=== PATIENT | male | born 1965 | race Caucasian/White ===

== ENCOUNTER 2018-06-15 11:45 | Inpatient (IN) | payer MEDICAID ==
[~2018-06-15] VITALS: Ht 188 cm; Wt 92.1 kg
[2018-06-15] MEDS ORDERED: MULTIVITAMINS,THERAGRAN 1 UDTAB TABLET PO STA (12:16)
[2018-06-15] MEDS ORDERED: FOLIC ACID 1 MG TABLET PO ONE (12:30)
[2018-06-15] MEDS ORDERED: CHLORDIAZEPOXIDE HCL 25 MG CAPSULE PO ONE (12:30)
[2018-06-15] MEDS ORDERED: IV NS 0.9% 1,000 ML BAG IV ONE (12:30)
[2018-06-15] MEDS ORDERED: THIAMINE HCL 100 MG TABLET PO ONE (12:30)
[2018-06-15 12:31] LABS: APPEARANCE,URINE Clear (CLEAR); BILIRUBIN,URINE MODERATE (NEGATIVE); BLOOD, URINE Large Ery/uL (NEGATIVE); COLOR,URINE Yellow (YELLOW); KETONES,URINE Trace (NEGATIVE); LEUKOCYTE ESTERASE ,URINE Negative (NEGATIVE); NITRITE, URINE Negative (NEGATIVE); PH,URINE 6.5 (5.0-8.0); PROTEIN,URINE 100 mg/dl (NEGATIVE); UGLUCOSE Negative (NEGATIVE); UROBILINOGEN,URINE 0.2 EU/dL (0.2)
[2018-06-15 12:33] LABS: BASOPHILS % (AUTO) 0.2 % (0.0-2.0); EOSINOPHILS % (AUTO) 0.3 % (0.0-6.0); HEMATOCRIT 44 % (39-51); HEMOGLOBIN 14.8 g/dL (13.5-17.5); LYMPHOCYTES # (AUTO) 0.5 /CMM (0.8-4.8); LYMPHOCYTES % (AUTO) 6.9 % (20.0-44.0); MEAN CORPUSCULAR HGB CONC 34 g/dl (31.0-36.0); MEAN CORPUSCULAR VOLUME 97 fL (80-96); MONOCYTES % (AUTO) 13.8 % (2.0-12.0); NEUTROPHILS # (AUTO) 5.6 /CMM (1.8-8.9); NEUTROPHILS % (AUTO) 78.8 % (43.0-81.0); PLATELET COUNT (AUTO) 65 /CMM (150-450); RED BLOOD CELL COUNT(AUTO) 4.48 MIL/uL (4.5-6.0); WHITE BLOOD COUNT (AUTO) 7.1 K/uL (4.3-11.0)
[2018-06-15 12:35] LABS: BACTERIA,URINE Few /HPF (None Seen); SQUAMOUS EPITHELIAL CELL,UR Rare /HPF (None Seen)
[2018-06-15] MEDS ORDERED: FOLIC ACID 1 MG TABLET ONE (12:36)
[2018-06-15] MEDS ORDERED: CHLORDIAZEPOXIDE HCL 25 MG CAPSULE ONE (12:36)
[2018-06-15] MEDS ORDERED: THIAMINE HCL 100 MG TABLET ONE (12:37)
[2018-06-15 12:43] LABS: CALCIUM, SERUM 9.1 mg/dL (8.5-10.1); CARBON DIOXIDE 26 mmol/L (21-32); CHLORIDE 100 mmol/L (98-107); GLUCOSE 141 mg/dL (74-106); POTASSIUM 3.8 mmol/L (3.5-5.1); SODIUM SERUM 136 mmol/L (136-145); UREA NITROGEN, BLOOD 17 mg/dL (7-18)
[2018-06-15 12:48] LABS: ACETAMINOPHEN 0 ug/ml (10-30); ALANINE AMINOTRANSFERASE 94 U/L (12-78); ALBUMIN 4.3 g/dL (3.4-5.0); ALCOHOL, BLOOD < 3 mg/dL (0-0); ALKALINE PHOSPHATASE 69 U/L (46-116); ASPARTATE AMINOTRANSFERASE 190 U/L (15-37); BILIRUBIN,DIRECT 0.2 mg/dL (0.0-0.2); BILIRUBIN,TOTAL 0.7 mg/dL (0.2-1.0); SALICYLATE 3.9 mg/dL (2.8-20.0); TOTAL PROTEIN, SERUM 9.4 g/dL (6.4-8.2)
[2018-06-15 12:55] LABS: LYMPHOCYTES % (MANUAL) 11 % (16-48); MONOCYTES % (MANUAL) 13 % (0-11.0); NEUTROPHILS % (MANUAL) 76 (42-76)
[2018-06-15 18:30] VITALS: BP 144/86
[2018-06-15 18:35] VITALS: BP 144/86
[2018-06-15] MEDS ORDERED: ACETAMINOPHEN 325 MG TABLET PO PRN (19:00)
[2018-06-15] MEDS ORDERED: ONDANSETRON HCL/PF 4 MG/2 ML VIAL IVP PRN (19:00)
[2018-06-15] MEDS ORDERED: LORAZEPAM INJ 2 MG/ML VIAL IV PRN (19:00)
[2018-06-15] MEDS: MULTIVITAMINS,THERAGRAN 1 UDTAB TABLET PO SCH (19:50)
[2018-06-15] MEDS: FOLIC ACID 1 MG TABLET PO SCH (19:50)
[2018-06-15] MEDS: THIAMINE HCL 100 MG TABLET PO SCH (19:50)
[2018-06-15 20:19] VITALS: BP 141/95
[2018-06-15] MEDS: IV NS 0.9% 1,000 ML IV PRN (20:34)
[2018-06-16] VITALS: BP 140/90
[2018-06-16 04:02] VITALS: BP 142/95
[2018-06-16 06:29] LABS: BASOPHILS % (AUTO) 0.2 % (0.0-2.0); EOSINOPHILS % (AUTO) 2.4 % (0.0-6.0); HEMATOCRIT 41 % (39-51); HEMOGLOBIN 13.7 g/dL (13.5-17.5); LYMPHOCYTES % (AUTO) 20.2 % (20.0-44.0); MEAN CORPUSCULAR HGB CONC 34 g/dl (31.0-36.0); MEAN CORPUSCULAR VOLUME 98 fL (80-96); MONOCYTES # (AUTO) 0.8 /CMM (0.1-1.30); NEUTROPHILS # (AUTO) 3.2 /CMM (1.8-8.9); NEUTROPHILS % (AUTO) 62.2 % (43.0-81.0); PLATELET COUNT (AUTO) 61 /CMM (150-450); RED BLOOD CELL COUNT(AUTO) 4.15 MIL/uL (4.5-6.0); WHITE BLOOD COUNT (AUTO) 5.2 K/uL (4.3-11.0)
[2018-06-16] MEDS: IV NS 0.9% 1,000 ML IV PRN ×2 (06:54→22:47)
[2018-06-16 07:08] LABS: THYROID STIMULATING HORMONE 3.225 uIU/mL (0.358-3.74)
[2018-06-16 07:13] LABS: ALBUMIN 3.7 g/dL (3.4-5.0); BILIRUBIN,TOTAL 0.7 mg/dL (0.2-1.0); CREATININE 0.8 mg/dL (0.6-1.3); MAGNESIUM 1.8 mg/dL (1.8-2.4); POTASSIUM 3.7 mmol/L (3.5-5.1); TOTAL PROTEIN, SERUM 8.4 g/dL (6.4-8.2)
[2018-06-16 07:49] LABS: BAND % (MANUAL) 4 % (0.0-5.0); LYMPHOCYTES % (MANUAL) 16 % (16-48); MONOCYTES % (MANUAL) 9 % (0-11.0); NEUTROPHILS % (MANUAL) 71 (42-76)
[2018-06-16 08:00] VITALS: BP 128/83
[2018-06-16] MEDS: THIAMINE HCL 100 MG TABLET PO SCH (08:56)
[2018-06-16] MEDS: MULTIVITAMINS,THERAGRAN 1 UDTAB TABLET PO SCH (08:56)
[2018-06-16] MEDS: FOLIC ACID 1 MG TABLET PO SCH (08:56)
[2018-06-16] MEDS: CHLORDIAZEPOXIDE HCL 25 MG CAPSULE PO SCH ×3 (08:57→16:00)
[2018-06-16 16:00] VITALS: BP 126/93
[2018-06-16 20:00] VITALS: BP 130/76
[2018-06-17 08:00] VITALS: BP 142/95
[2018-06-17] MEDS: CHLORDIAZEPOXIDE HCL 25 MG CAPSULE PO SCH ×2 (08:31→12:11)
[2018-06-17] MEDS: THIAMINE HCL 100 MG TABLET PO SCH (08:31)
[2018-06-17] MEDS: FOLIC ACID 1 MG TABLET PO SCH (08:31)
[2018-06-17] MEDS: MULTIVITAMINS,THERAGRAN 1 UDTAB TABLET PO SCH (08:31)
[2018-06-17 08:34] LABS: BASOPHILS % (AUTO) 0.2 % (0.0-2.0); EOSINOPHILS % (AUTO) 2.2 % (0.0-6.0); HEMATOCRIT 41 % (39-51); HEMOGLOBIN 13.7 g/dL (13.5-17.5); LYMPHOCYTES % (AUTO) 14.8 % (20.0-44.0); MEAN CORPUSCULAR HGB CONC 33 g/dl (31.0-36.0); MEAN CORPUSCULAR VOLUME 99 fL (80-96); MONOCYTES # (AUTO) 0.9 /CMM (0.1-1.30); MONOCYTES % (AUTO) 13.2 % (2.0-12.0); NEUTROPHILS # (AUTO) 4.5 /CMM (1.8-8.9); NEUTROPHILS % (AUTO) 69.6 % (43.0-81.0); PLATELET COUNT (AUTO) 67 /CMM (150-450); RED BLOOD CELL COUNT(AUTO) 4.19 MIL/uL (4.5-6.0); WHITE BLOOD COUNT (AUTO) 6.5 K/uL (4.3-11.0)
[2018-06-17 08:53] LABS: CALCIUM, SERUM 8.9 mg/dL (8.5-10.1); CREATININE 0.9 mg/dL (0.6-1.3); PHOSPHORUS 4.7 mg/dL (2.5-4.9); POTASSIUM 3.6 mmol/L (3.5-5.1)
[2018-06-17 09:49] LABS: BAND % (MANUAL) 4 % (0.0-5.0); EOSINOPHILS % (MANUAL) 5 % (0-4); LYMPHOCYTES % (MANUAL) 14 % (16-48); MONOCYTES % (MANUAL) 6 % (0-11.0); NEUTROPHILS % (MANUAL) 71 (42-76)
[2018-06-17] MEDS ORDERED: HYDR-3028 PO (14:01)
[2018-06-17] MEDS ORDERED: CLON0.1T PO (14:01)
[2018-06-17] MEDS ORDERED: Thiamine HCL PO (14:01)
[2018-06-17] MEDS ORDERED: CHLORDIAZEPOXIDE HCL 25 MG CAPSULE PO ONE (15:00)
[2018-06-17] MEDS ORDERED: LORAZEPAM 1 MG TABLET PO ONE (15:00)
== END 2018-06-17 16:44 | disposition home or self-care (01) | DRG 775 ==
LOC: ER 11:49 → TELE 17:02 → MED 06-16 12:40
PROVIDERS: ADMIT Nurse Practitioner Acute Care; ATTEND Nurse Practitioner Acute Care
DX: F10.239 Alcohol dependence with withdrawal, unspecified (principal); K85.20 Alcohol induced acute pancreatitis without necrosis or infection; D69.6 Thrombocytopenia, unspecified; R45.851 Suicidal ideations; R74.0 Nonspecific elevation of levels of transaminase and lactic acid dehydrogenase [LDH]; F32.9 Major depressive disorder, single episode, unspecified
CPT/HCPCS: 36415; 71045-TC; 76705-TC; 80048-TC; 80053-TC; 80061-TC; 80076-TC; 80305; 81000-TC; 83540-TC; 83690-TC; 83735-TC; 84100-TC; 84443-TC; 85025-TC; 87081-TC; 87086-TC; G0378; G0480; J2060; J7030

== ENCOUNTER 2020-01-18 02:50 | Emergency (ER) | payer MEDICAID ==
[~2020-01-18] VITALS: Ht 188 cm; Wt 90.7 kg
[~2020-01-18 02:50] MED LIST: CLON0.1T PO; HYDR50TA61 PO; Thiamine HCL PO
--- NOTE | 2020-01-18 03:06 | NUR ---
BIB [employer] FROM HALF-WAY FOR C/O R WRIST PAIN X 2 HRS DUE TO HANDCUFF. NO DEFORMITY NOTED. PT AMBULATORY TO BED 4. WILL CONT TO MONITOR ,
--- NOTE | 2020-01-18 03:11 | NUR ---
X RAY AT BED SIDE
--- NOTE | 2020-01-18 05:38 | NUR ---
PT REFUSED HAND SPLINT . MEDICALLY CLEAR FOR D/C BY MD. Patient discharged to in custody in stable condition w/ [employer]. Written and verbal after care instructions given. Patient verbalizes understanding of instruction.
[2020-01-18 05:40] VITALS: BP 111/68
== END 2020-01-18 05:41 ==
LOC: ER 02:51
DX: S63.591A Other specified sprain of right wrist, initial encounter (principal); X58.XXXA Exposure to other specified factors, initial encounter; Y93.89 Activity, other specified; Y92.89 Other specified places as the place of occurrence of the external cause; Y99.8 Other external cause status
CPT/HCPCS: 73110